=== PATIENT | male | born 1995 | race Caucasian/White ===

== ENCOUNTER 2016-09-13 15:29 | Emergency (ER) | payer OTHER ==
[~2016-09-13] VITALS: Ht 172.7 cm; Wt 94.0 kg
[2016-09-13 17:32] VITALS: BP 126/69
== END 2016-09-13 17:32 | disposition home or self-care (01) ==
LOC: EME 15:29 → EDSEX 15:29 → EME 17:32
DX: R04.0 Epistaxis (principal)
CPT/HCPCS: 99281; 99283

== ENCOUNTER 2016-11-02 23:04 | Emergency (ER) | payer OTHER ==
[~2016-11-02] VITALS: Ht 177.8 cm; Wt 89.9 kg
[2016-11-02 23:50] LABS: HEMATOCRIT 54.3 % (38.0-50.0); MCH 29.6 PG (29.0-34.0); MCHC 34.3 G/DL (30.0-36.0); MCV 86.5 FL (86-99); MEAN PLAT.VOLUME 10.4 uM^3 (9.0-12.4); PLATELET COUNT 334 K/uL (156-360); RBC DIS.WIDTH-CV 12.3 % (11.8-14.6); RBC DIS.WIDTH-SD 38.8 % (39-53); RED BLOOD COUNT 6.28 M/uL (4.00-5.50)
[2016-11-03] LABS: POTASSIUM ND MEQ/L (3.7-5.4)
[2016-11-03 00:02] LABS: ADD MIUA? YES; BILIRUBIN SMALL; BLOOD NEGATIVE; COLOR AMBER ((YELLOW)); GLUCOSE (STRIP) NEGATIVE; KETONES 80; LEUKOCYTES NEGATIVE; NITRITE NEGATIVE; PROTEIN (STRIP) 100; SPECIFIC GRAVITY 1.027 (1.000-1.030); UROBILINOGEN 0.2 MG/DL (0.2-1.0)
[2016-11-03 00:06] LABS: CHLORIDE 104 mEq/L (99-109); SODIUM 141 mEq/L (136-147)
[2016-11-03 00:08] LABS: GLUCOSE 107 mg/dL (70-99)
[2016-11-03 00:09] LABS: ANION GAP 20 MEQ/L (2-14)
[2016-11-03 00:10] LABS: TOTAL BILIRUBIN 0.7 mg/dL (0.0-1.0)
[2016-11-03 00:12] LABS: ALKALINE PHOSPHATASE 98 IU/L (3-129); GFR ESTIMATE (CALCULATED) > 59 mL/min/
[2016-11-03 00:13] LABS: UREA NITROGEN (BUN) 13 mg/dL (9-23)
[2016-11-03] MEDS ORDERED: FLUTICASONE P15.8 ML BOTH NARES (00:46)
[2016-11-03] MEDS ORDERED: AMOX TR-K CLV1 EAC4 PO (00:46)
[2016-11-03 00:49] LABS: POTASSIUM 4.1 mEq/L (3.7-5.4)
[2016-11-03 00:56] LABS: EPITHELIAL CELLS RARE /HPF; MUCUS 1+ /LPF; RED BLOOD CELLS NONE SEEN /HPF (0-5); WHITE BLOOD CELLS RARE /HPF (0-5)
[2016-11-03 00:57] LABS: BACTERIA RARE /HPF; CASTS PRESENT /LPF; COARSE GRANULAR CASTS 0-5 /LPF; CRYSTALS NONE SEEN; UCUL ADDED? NO
[2016-11-03] MEDS ORDERED: ZOFRAN ODT4 MG PO (01:34)
[2016-11-03 01:45] VITALS: BP 120/98
== END 2016-11-03 01:56 | disposition home or self-care (01) ==
LOC: EME 23:04
DX: R10.30 Lower abdominal pain, unspecified (principal); R11.2 Nausea with vomiting, unspecified
CPT/HCPCS: 80053; 81003; 84999; 85027; 99281; 99284